=== PATIENT | male | born 1955 | race Caucasian/White ===

== ENCOUNTER 2017-04-09 15:18 | Inpatient (IN) | payer MEDICAID, OTHER ==
[~2017-04-09] VITALS: Ht 177.8 cm; Wt 58.0 kg
[2017-04-09] MEDS ORDERED: SODIUM CHLORIDE 0.9% 1,000 ML IVB ONE (15:56)
[2017-04-09 16:34] LABS: Basophils # (auto) 0.1 uL; Basophils % (auto) 0.2 % (0.0-2.0); Eosinophils # (auto) 0 uL; Eosinophils % (auto) 0.1 % (0.0-7.0); Lymphocytes # (auto) 0.7 uL; Lymphocytes % (auto) 3.3 % (10.0-50.0); Monocytes # (auto) 0.9 uL
[2017-04-09 16:35] LABS: Hematocrit 40.3 % (41.0-53.0); Hemoglobin 13.3 g/dL (13.5-17.5); Mean Corpuscular Hemoglobin 28.2 pg (28.0-32.0); Mean Corpuscular Hgb Conc. 33.1 g/dL (32.0-36.0); Monocytes % (auto) 4.3 % (0.0-12.0); Neutrophils # (auto) 19.7 uL; Neutrophils % (auto) 92.1 % (37.0-80.0); Nucleated Red Blood Cells % 0.1 %; Platelet Count (auto) 608 10^3/uL (140-450); Red Blood Cells 4.74 10^6/uL (4.5-5.90); Red Cell Distribution Width 16.2 % (11.8-14.3); White Blood Cell 21.3 10^3/uL (4.4-10.8)
[2017-04-09] MEDS ORDERED: VANCOMYCIN 1GM/250ML 250 ML IV ONE (17:00)
[2017-04-09 17:05] LABS: Alanine Aminotransferase 31 U/L (16-61); Albumin 3.6 g/dL (3.4-5.0); Alkaline Phosphatase 111 U/L (45-117); Anion Gap 8 (5-15); Aspartate Aminotransferase 29 U/L (15-37); BUN/Creatinine Ratio 27.7; Bilirubin, Total 0.5 mg/dL (0.2-1.0); Blood Urea Nitrogen 46 mg/dL (7-18); Calcium 10.6 mg/dL (8.5-10.1); Carbon Dioxide 22 mmol/L (21-32); Chloride 98 mmol/L (98-107); GFR African American 54 mL/min; GFR Non-African American 45 mL/min; Glucose 105 mg/dL (74-106); Sodium 128 mmol/L (136-145); Total Protein 11.8 g/dL (6.4-8.2)
[2017-04-09 17:11] LABS: Potassium 5.7 mmol/L (3.5-5.1)
[2017-04-09 19:17] LABS: Urine Bacteria MANY /hpf (None Seen); Urine Blood 1+ /uL (Negative); Urine Specific Gravity 1.018 (1.001-1.035); Urine WBC 201 /hpf (0 - 3)
[2017-04-09 19:45] LABS: Alcohol, Urine < 3.0 mg/dL (0-5); Amphetamine Screen, Urine NEGATIVE (NEGATIVE); Barbiturate Scree,Urine NEGATIVE (NEGATIVE); Benzodiazephine Screen, Urine POSITIVE (NEGATIVE); Cannabinoid Screen, Urine NEGATIVE (NEGATIVE); Cocaine Screen, Urine NEGATIVE (NEGATIVE); Opiate Scree,Urine POSITIVE (NEGATIVE); Phencyclidine Screen, Urine NEGATIVE (NEGATIVE)
[2017-04-09] MEDS: SODIUM CHLORIDE 0.9% 1,000 ML IV SCH (20:59)
[2017-04-09] MEDS ORDERED: ONDANSETRON HCL 4 MG/2 ML VIAL IV PRN (21:00)
[2017-04-09] MEDS ORDERED: cefTRIAXone 1GM/10ml IVPUSH 10 ML IV ONE (21:00)
[2017-04-09] MEDS ORDERED: VANCOMYCIN PER PHARMACY 0 MG IV SCH (21:00)
[2017-04-09] MEDS ORDERED: ACETAMINOPHEN 325 MG TAB PO PRN (21:00)
[2017-04-09 22:42] VITALS: BP 171/79
[2017-04-09 23:11] VITALS: BP 119/57
[2017-04-09 23:50] VITALS: BP 171/79
[2017-04-10] MEDS: FAMOTIDINE 20 MG TAB PO SCH ×3 (00:44→22:49)
[2017-04-10] MEDS: CARVEDILOL 3.125 MG TAB PO SCH ×3 (00:44→22:50)
[2017-04-10] MEDS: HYDROcodone-ACET 5/325MG TAB PO PRN ×2 (00:45→22:50)
[2017-04-10] MEDS ORDERED: DOCUSATE SOD 100 MG CAP PO ONE (04:15)
[2017-04-10 05:00] VITALS: BP 149/64
[2017-04-10 06:10] LABS: Eosinophils # (auto) 0 uL; Hematocrit 34.5 % (41.0-53.0); Lymphocytes # (auto) 0.7 uL; Monocytes # (auto) 1.2 uL; Red Cell Distribution Width 16.4 % (11.8-14.3)
[2017-04-10 06:17] LABS: Basophils # (auto) 0 uL; Basophils % (auto) 0.1 % (0.0-2.0); Eosinophils % (auto) 0.1 % (0.0-7.0); Hemoglobin 11.4 g/dL (13.5-17.5); Lymphocytes % (auto) 4.1 % (10.0-50.0); Mean Corpuscular Hemoglobin 28.2 pg (28.0-32.0); Mean Corpuscular Volume 85.6 fL (80.0-100.0); Monocytes % (auto) 6.8 % (0.0-12.0); Neutrophils # (auto) 15.9 uL; Neutrophils % (auto) 88.9 % (37.0-80.0); Platelet Count (auto) 497 10^3/uL (140-450); Red Blood Cells 4.03 10^6/uL (4.5-5.90); White Blood Cell 17.9 10^3/uL (4.4-10.8)
[2017-04-10 06:36] LABS: Albumin 2.7 g/dL (3.4-5.0); BUN/Creatinine Ratio 29.7; Bilirubin, Total 0.4 mg/dL (0.2-1.0); Calcium 9.4 mg/dL (8.5-10.1); Potassium 4.8 mmol/L (3.5-5.1); Total Protein 9.3 g/dL (6.4-8.2)
[2017-04-10 08:07] VITALS: BP 127/64
[2017-04-10] MEDS: DOCUSATE SOD 100 MG CAP PO SCH ×2 (09:59→22:00)
[2017-04-10] MEDS: ENOXAPARIN SOD 40 MG/0.4 ML SYRINGE SC SCH (09:59)
[2017-04-10] MEDS: AMIODARONE HCL 200 MG TAB PO SCH (09:59)
[2017-04-10 12:19] VITALS: BP 164/69
[2017-04-10] MEDS: PIPERACILLIN-TAZOB 3.375GM 50 ML IV SCH ×2 (12:48→18:07)
[2017-04-10] MEDS: SODIUM CHLORIDE 0.9% 1,000 ML IV SCH (15:56)
[2017-04-10] MEDS: VANCOMYCIN 1GM/250ML 250 ML IV SCH (16:09)
[2017-04-10 16:55] VITALS: BP 120/86
[2017-04-10 22:00] VITALS: BP 163/76
[2017-04-10] MEDS ORDERED: cefTRIAXone 1GM/10ml IVPUSH 10 ML IV SCH (22:00)
[2017-04-11 05:16] VITALS: BP 151/69
[2017-04-11] MEDS: SODIUM CHLORIDE 0.9% 1,000 ML IV SCH (06:39)
[2017-04-11] MEDS: PIPERACILLIN-TAZOB 3.375GM 50 ML IV SCH ×4 (06:41→18:09)
[2017-04-11] MEDS: HYDROcodone-ACET 5/325MG TAB PO PRN ×3 (06:45→18:46)
[2017-04-11 06:56] LABS: Basophils # (auto) 0 uL; Basophils % (auto) 0.1 % (0.0-2.0); Eosinophils # (auto) 0 uL; Eosinophils % (auto) 0.3 % (0.0-7.0); Hematocrit 30.3 % (41.0-53.0); Hemoglobin 10.3 g/dL (13.5-17.5); Lymphocytes # (auto) 0.5 uL; Mean Corpuscular Hemoglobin 28.2 pg (28.0-32.0); Mean Corpuscular Hgb Conc. 33.9 g/dL (32.0-36.0); Mean Corpuscular Volume 83.3 fL (80.0-100.0); Monocytes % (auto) 6.1 % (0.0-12.0); Neutrophils # (auto) 15.6 uL; Neutrophils % (auto) 90.5 % (37.0-80.0); Platelet Count (auto) 429 10^3/uL (140-450); Red Blood Cells 3.64 10^6/uL (4.5-5.90); Red Cell Distribution Width 16.1 % (11.8-14.3); White Blood Cell 17.3 10^3/uL (4.4-10.8)
[2017-04-11 07:17] LABS: Calcium 9.1 mg/dL (8.5-10.1)
[2017-04-11 07:22] LABS: BUN/Creatinine Ratio 22.4
[2017-04-11 08:00] VITALS: BP 171/63
[2017-04-11] MEDS: DOCUSATE SOD 100 MG CAP PO SCH ×2 (10:00→21:55)
[2017-04-11] MEDS: ENOXAPARIN SOD 40 MG/0.4 ML SYRINGE SC SCH (10:20)
[2017-04-11] MEDS: FAMOTIDINE 20 MG TAB PO SCH ×2 (10:20→21:56)
[2017-04-11] MEDS: AMIODARONE HCL 200 MG TAB PO SCH (10:20)
[2017-04-11] MEDS: CARVEDILOL 3.125 MG TAB PO SCH ×2 (10:21→22:41)
[2017-04-11] MEDS: BOOST PLUS 8 ounce PO SCH ×2 (12:00→18:09)
[2017-04-11 12:34] VITALS: BP 162/78
[2017-04-11] MEDS: amLODIPine BESYLATE 5 MG TAB PO SCH (13:51)
[2017-04-11] MEDS: VANCOMYCIN 1GM/250ML 250 ML IV SCH (17:10)
[2017-04-11 17:19] VITALS: BP 172/68
[2017-04-11] MEDS: cloNIDine HCL 0.1 MG TAB PO PRN (18:09)
[2017-04-11] MEDS: TEMAZEPAM 15 MG CAP PO PRN (21:56)
[2017-04-11 22:20] VITALS: BP 131/61
[2017-04-12] MEDS: PIPERACILLIN-TAZOB 3.375GM 50 ML IV SCH ×5 (02:11→23:32)
[2017-04-12 04:59] VITALS: BP 143/61
[2017-04-12] MEDS: SODIUM CHLORIDE 0.9% 1,000 ML IV SCH ×2 (05:36→15:39)
[2017-04-12] MEDS: HYDROcodone-ACET 5/325MG TAB PO PRN ×4 (05:36→21:54)
[2017-04-12] MEDS: BOOST PLUS 8 ounce PO SCH ×3 (08:00→18:18)
[2017-04-12 09:00] VITALS: BP 148/63
[2017-04-12] MEDS: FAMOTIDINE 20 MG TAB PO SCH ×2 (10:46→21:54)
[2017-04-12] MEDS: amLODIPine BESYLATE 5 MG TAB PO SCH (10:46)
[2017-04-12] MEDS: CARVEDILOL 3.125 MG TAB PO SCH ×2 (10:47→21:54)
[2017-04-12] MEDS: DOCUSATE SOD 100 MG CAP PO SCH ×2 (10:47→21:57)
[2017-04-12] MEDS: ENOXAPARIN SOD 40 MG/0.4 ML SYRINGE SC SCH (10:47)
[2017-04-12 13:00] VITALS: BP 157/64
[2017-04-12 17:00] VITALS: BP 154/83
[2017-04-12] MEDS: VANCOMYCIN 1GM/250ML 250 ML IV SCH (17:18)
[2017-04-12 21:44] VITALS: BP 146/70
[2017-04-12] MEDS: TEMAZEPAM 15 MG CAP PO PRN (23:29)
[2017-04-12] MEDS: MORPHINE SULFATE 4 MG/ML SYR/VIAL IV PRN (23:29)
[2017-04-13 05:00] VITALS: BP 166/77
[2017-04-13] MEDS: cloNIDine HCL 0.1 MG TAB PO PRN (05:09)
[2017-04-13] MEDS: MORPHINE SULFATE 4 MG/ML SYR/VIAL IV PRN ×3 (05:09→21:46)
[2017-04-13] MEDS: PIPERACILLIN-TAZOB 3.375GM 50 ML IV SCH ×3 (05:09→18:26)
[2017-04-13 06:42] LABS: INR 1.04 (0.9-1.15); Partial Thromboplastin Time 28.9 sec (22.64-33.71); Prothrombin Time 11.3 sec (9.37-12.3)
[2017-04-13] MEDS: BOOST PLUS 8 ounce PO SCH ×3 (08:00→18:25)
[2017-04-13] MEDS: SODIUM CHLORIDE 0.9% 1,000 ML IV SCH (08:19)
[2017-04-13 08:30] VITALS: BP 149/68
[2017-04-13] MEDS: FAMOTIDINE 20 MG TAB PO SCH ×2 (09:44→21:45)
[2017-04-13] MEDS: HYDROcodone-ACET 5/325MG TAB PO PRN ×2 (09:44→20:14)
[2017-04-13] MEDS: CARVEDILOL 3.125 MG TAB PO SCH ×5 (09:45→23:45)
[2017-04-13] MEDS: amLODIPine BESYLATE 5 MG TAB PO SCH (09:46)
[2017-04-13] MEDS: DOCUSATE SOD 100 MG CAP PO SCH ×2 (09:46→22:00)
[2017-04-13] MEDS: ENOXAPARIN SOD 40 MG/0.4 ML SYRINGE SC SCH (09:47)
[2017-04-13] MEDS ORDERED: ceFAZolin 1GM/50ML 50 ML IV ONE (11:06)
[2017-04-13] MEDS ORDERED: MIDAZOLAM HCL 1MG/1ML-2 ML VIAL ONE (11:22)
[2017-04-13] MEDS ORDERED: PROPOFOL 10 MG/ML 20 ML IV ONE (11:22)
[2017-04-13] MEDS ORDERED: LIDOCAINE HCL 2 %PF INJ 10ML AMP IJ ONE (11:22)
[2017-04-13] MEDS ORDERED: LIDOCAINE HCL 2% TOP JELLY 5ML TOP ONE (11:25)
[2017-04-13] MEDS ORDERED: fentaNYL CITRATE 100 MCG/2 ML VL ONE (11:31)
[2017-04-13] MEDS ORDERED: hydrALAZINE HCL 20 MG/ML VL IV PRN (11:45)
[2017-04-13] MEDS ORDERED: NALOXONE HCL 0.4 MG/ML VIAL IV PRN (11:45)
[2017-04-13] MEDS ORDERED: MORPHINE SULFATE 4 MG/ML SYR/VIAL IV PRN (11:45)
[2017-04-13] MEDS ORDERED: ONDANSETRON HCL 4 MG/2 ML VIAL IV ONE (11:45)
[2017-04-13] MEDS ORDERED: KETOROLAC TROMETH 30 MG/ML 1ML VIAL ONE (13:23)
[2017-04-13] MEDS ORDERED: KETOROLAC TROMETH 30 MG/ML 1ML VIAL IV ONE (13:30)
[2017-04-13 16:40] VITALS: BP 145/50
[2017-04-13] MEDS: VANCOMYCIN 1GM/250ML 250 ML IV SCH (17:54)
[2017-04-13 20:00] VITALS: BP 151/61
[2017-04-13] MEDS: TEMAZEPAM 15 MG CAP PO PRN (21:45)
[2017-04-13 22:33] VITALS: BP 151/66
[2017-04-14] MEDS: MORPHINE SULFATE 4 MG/ML SYR/VIAL IV PRN ×5 (00:03→20:55)
[2017-04-14] MEDS: PIPERACILLIN-TAZOB 3.375GM 50 ML IV SCH ×5 (00:22→23:35)
[2017-04-14] MEDS: SODIUM CHLORIDE 0.9% 1,000 ML IV SCH ×2 (00:59→17:42)
[2017-04-14 05:00] VITALS: BP 163/84
[2017-04-14] MEDS: cloNIDine HCL 0.1 MG TAB PO PRN (05:47)
[2017-04-14 07:06] LABS: Basophils # (auto) 0 uL; Basophils % (auto) 0.4 % (0.0-2.0); Eosinophils # (auto) 0.1 uL; Eosinophils % (auto) 1.3 % (0.0-7.0); Hematocrit 26.7 % (41.0-53.0); Hemoglobin 8.9 g/dL (13.5-17.5); Lymphocytes # (auto) 0.7 uL; Lymphocytes % (auto) 8.2 % (10.0-50.0); Mean Corpuscular Hemoglobin 28.1 pg (28.0-32.0); Mean Corpuscular Hgb Conc. 33.2 g/dL (32.0-36.0); Mean Corpuscular Volume 84.4 fL (80.0-100.0); Monocytes # (auto) 0.7 uL; Monocytes % (auto) 7.5 % (0.0-12.0); Neutrophils # (auto) 7.4 uL; Neutrophils % (auto) 82.6 % (37.0-80.0); Nucleated Red Blood Cells % 0.1 %; Platelet Count (auto) 426 10^3/uL (140-450); Red Blood Cells 3.16 10^6/uL (4.5-5.90); Red Cell Distribution Width 16.6 % (11.8-14.3); White Blood Cell 8.9 10^3/uL (4.4-10.8)
[2017-04-14 07:16] LABS: BUN/Creatinine Ratio 16.1; Calcium 8.8 mg/dL (8.5-10.1); Potassium 4.5 mmol/L (3.5-5.1)
[2017-04-14] MEDS: BOOST PLUS 8 ounce PO SCH ×4 (08:00→17:42)
[2017-04-14] MEDS: HYDROcodone-ACET 5/325MG TAB PO PRN ×4 (08:45→23:22)
[2017-04-14 09:00] VITALS: BP 131/69
[2017-04-14] MEDS: DOCUSATE SOD 100 MG CAP PO SCH ×2 (09:56→22:00)
[2017-04-14] MEDS: ENOXAPARIN SOD 40 MG/0.4 ML SYRINGE SC SCH (10:28)
[2017-04-14] MEDS: ASCORBIC ACID 500 MG TAB PO SCH ×2 (10:29→23:22)
[2017-04-14] MEDS: FAMOTIDINE 20 MG TAB PO SCH ×2 (10:29→23:24)
[2017-04-14] MEDS: MULTIPLE VITAMINS W/ MINERALS TAB PO SCH ×2 (10:29→23:22)
[2017-04-14] MEDS: CARVEDILOL 3.125 MG TAB PO SCH ×2 (10:30→23:24)
[2017-04-14] MEDS: amLODIPine BESYLATE 5 MG TAB PO SCH (10:31)
[2017-04-14 13:00] VITALS: BP 151/72
[2017-04-14 17:00] VITALS: BP 186/79
[2017-04-14] MEDS ORDERED: VANCOMYCIN 1GM/250ML 250 ML IV SCH (17:00)
[2017-04-14 20:00] VITALS: BP 131/69
[2017-04-14 22:00] VITALS: BP 155/71
[2017-04-14] MEDS: ceFAZolin 1GM 2 GM in D5W 5% 100 ML IV SCH (22:00)
[2017-04-14] MEDS ORDERED: ceFAZolin 1GM/50ML 50 ML IV ONE (23:43)
[2017-04-15] MEDS: CARVEDILOL 3.125 MG TAB PO SCH ×3 (00:24→21:33)
[2017-04-15] MEDS: HYDROcodone-ACET 5/325MG TAB PO PRN ×3 (04:16→16:16)
[2017-04-15] MEDS: MORPHINE SULFATE 4 MG/ML SYR/VIAL IV PRN ×5 (04:26→22:15)
[2017-04-15 05:00] VITALS: BP 195/68
[2017-04-15] MEDS ORDERED: ceFAZolin 1GM/50ML 50 ML IV ONE ×2 (05:26→21:27)
[2017-04-15] MEDS: PIPERACILLIN-TAZOB 3.375GM 50 ML IV SCH ×4 (05:29→23:37)
[2017-04-15] MEDS: ceFAZolin 1GM 2 GM in D5W 5% 100 ML IV SCH ×4 (06:00→21:34)
[2017-04-15 07:33] LABS: Albumin 2.4 g/dL (3.4-5.0); BUN/Creatinine Ratio 12.4; Bilirubin, Total 0.2 mg/dL (0.2-1.0); Calcium 8.9 mg/dL (8.5-10.1); Potassium 3.8 mmol/L (3.5-5.1); Total Protein 8.1 g/dL (6.4-8.2)
[2017-04-15] MEDS: BOOST PLUS 8 ounce PO SCH ×3 (08:26→18:01)
[2017-04-15 09:00] VITALS: BP 149/56
[2017-04-15] MEDS: DOCUSATE SOD 100 MG CAP PO SCH ×2 (09:44→21:32)
[2017-04-15] MEDS: SODIUM CHLORIDE 0.9% 1,000 ML IV SCH (09:45)
[2017-04-15] MEDS: ASCORBIC ACID 500 MG TAB PO SCH ×2 (09:47→21:32)
[2017-04-15] MEDS: FAMOTIDINE 20 MG TAB PO SCH ×2 (09:47→21:32)
[2017-04-15] MEDS: ENOXAPARIN SOD 40 MG/0.4 ML SYRINGE SC SCH (09:47)
[2017-04-15] MEDS: amLODIPine BESYLATE 5 MG TAB PO SCH (09:48)
[2017-04-15] MEDS: MULTIPLE VITAMINS W/ MINERALS TAB PO SCH ×2 (09:48→21:32)
[2017-04-15 13:00] VITALS: BP 151/72
[2017-04-15] MEDS ORDERED: LIDOCAINE 1% HCL (LOCAL ANESTH.) INJ 20ML MDV ID ONE (16:30)
[2017-04-15 17:00] VITALS: BP 157/72
[2017-04-15] MEDS: cloNIDine HCL 0.1 MG TAB PO PRN (21:33)
[2017-04-15] MEDS: SODIUM CHLOR 0.9% PF (SALINE LOCK) 10ML VIAL IV SCH (21:34)
[2017-04-15 22:31] VITALS: BP 186/87
[2017-04-16] MEDS: HYDROcodone-ACET 5/325MG TAB PO PRN ×2 (00:40→16:11)
[2017-04-16] MEDS: SODIUM CHLORIDE 0.9% 1,000 ML IV SCH ×2 (03:05→20:22)
[2017-04-16] MEDS: MORPHINE SULFATE 4 MG/ML SYR/VIAL IV PRN ×4 (03:37→20:15)
[2017-04-16 05:16] VITALS: BP 179/74
[2017-04-16] MEDS: PIPERACILLIN-TAZOB 3.375GM 50 ML IV SCH ×3 (05:37→17:30)
[2017-04-16] MEDS: ceFAZolin 1GM 2 GM in D5W 5% 100 ML IV SCH ×3 (06:05→22:31)
[2017-04-16] MEDS: cloNIDine HCL 0.1 MG TAB PO PRN (06:05)
[2017-04-16] MEDS: BOOST PLUS 8 ounce PO SCH ×3 (08:26→17:30)
[2017-04-16 09:00] VITALS: BP 142/95
[2017-04-16] MEDS: DOCUSATE SOD 100 MG CAP PO SCH ×2 (10:00→22:00)
[2017-04-16] MEDS: ENOXAPARIN SOD 40 MG/0.4 ML SYRINGE SC SCH (10:00)
[2017-04-16] MEDS: SODIUM CHLOR 0.9% PF (SALINE LOCK) 10ML VIAL IV SCH ×2 (10:04→22:31)
[2017-04-16] MEDS: FAMOTIDINE 20 MG TAB PO SCH ×2 (10:05→22:32)
[2017-04-16] MEDS: ASCORBIC ACID 500 MG TAB PO SCH ×2 (10:05→22:32)
[2017-04-16] MEDS: MULTIPLE VITAMINS W/ MINERALS TAB PO SCH ×2 (10:05→22:31)
[2017-04-16] MEDS: amLODIPine BESYLATE 5 MG TAB PO SCH (10:06)
[2017-04-16] MEDS: CARVEDILOL 3.125 MG TAB PO SCH ×2 (10:07→22:00)
[2017-04-16 13:00] VITALS: BP 147/63
[2017-04-16 16:42] VITALS: BP 150/63
[2017-04-16 22:23] VITALS: BP 135/61
[2017-04-16] MEDS: TEMAZEPAM 15 MG CAP PO PRN (22:36)
[2017-04-17] VITALS (7 sets, daily range): BP systolic 141–169; BP diastolic 48–64
[2017-04-17] MEDS: PIPERACILLIN-TAZOB 3.375GM 50 ML IV SCH ×5 (00:50→23:55)
[2017-04-17] MEDS: MORPHINE SULFATE 4 MG/ML SYR/VIAL IV PRN ×5 (00:50→23:11)
[2017-04-17] MEDS: ceFAZolin 1GM 2 GM in D5W 5% 100 ML IV SCH ×3 (06:57→22:03)
[2017-04-17] MEDS: FAMOTIDINE 20 MG TAB PO SCH ×2 (09:14→22:03)
[2017-04-17] MEDS: ASCORBIC ACID 500 MG TAB PO SCH ×2 (09:15→22:03)
[2017-04-17] MEDS: HYDROcodone-ACET 5/325MG TAB PO PRN ×3 (09:15→20:35)
[2017-04-17] MEDS: MULTIPLE VITAMINS W/ MINERALS TAB PO SCH ×2 (09:15→22:03)
[2017-04-17] MEDS: DOCUSATE SOD 100 MG CAP PO SCH ×2 (09:16→22:03)
[2017-04-17] MEDS: CARVEDILOL 3.125 MG TAB PO SCH ×2 (09:16→22:03)
[2017-04-17] MEDS: amLODIPine BESYLATE 5 MG TAB PO SCH (09:16)
[2017-04-17] MEDS: BOOST PLUS 8 ounce PO SCH ×3 (09:17→17:02)
[2017-04-17] MEDS: ENOXAPARIN SOD 40 MG/0.4 ML SYRINGE SC SCH (09:17)
[2017-04-17] MEDS: SODIUM CHLOR 0.9% PF (SALINE LOCK) 10ML VIAL IV SCH ×2 (09:17→22:03)
[2017-04-17] MEDS: SODIUM CHLORIDE 0.9% 1,000 ML IV SCH (11:54)
[2017-04-17] MEDS: cloNIDine HCL 0.1 MG TAB PO PRN (17:03)
[2017-04-18] VITALS (7 sets, daily range): BP systolic 122–173; BP diastolic 53–70
[2017-04-18] MEDS: MORPHINE SULFATE 4 MG/ML SYR/VIAL IV PRN ×2 (04:12→21:33)
[2017-04-18] MEDS: PIPERACILLIN-TAZOB 3.375GM 50 ML IV SCH ×4 (05:13→23:59)
[2017-04-18] MEDS: SODIUM CHLORIDE 0.9% 1,000 ML IV SCH ×2 (05:14→21:34)
[2017-04-18] MEDS: HYDROcodone-ACET 5/325MG TAB PO PRN ×3 (06:44→18:56)
[2017-04-18] MEDS: ceFAZolin 1GM 2 GM in D5W 5% 100 ML IV SCH ×3 (07:00→21:32)
[2017-04-18 07:39] LABS: Basophils # (auto) 0.1 uL; Basophils % (auto) 0.6 % (0.0-2.0); Eosinophils # (auto) 0.2 uL; Eosinophils % (auto) 1.6 % (0.0-7.0); Hemoglobin 9.3 g/dL (13.5-17.5); Lymphocytes # (auto) 1.2 uL; Lymphocytes % (auto) 9.3 % (10.0-50.0); Mean Corpuscular Hemoglobin 27.5 pg (28.0-32.0); Mean Corpuscular Hgb Conc. 32.3 g/dL (32.0-36.0); Mean Corpuscular Volume 85.1 fL (80.0-100.0); Monocytes # (auto) 0.7 uL; Monocytes % (auto) 5.3 % (0.0-12.0); Neutrophils # (auto) 10.5 uL; Neutrophils % (auto) 83.2 % (37.0-80.0); Platelet Count (auto) 401 10^3/uL (140-450); Red Cell Distribution Width 16.6 % (11.8-14.3); White Blood Cell 12.6 10^3/uL (4.4-10.8)
[2017-04-18] MEDS: DOCUSATE SOD 100 MG CAP PO SCH ×2 (10:00→21:35)
[2017-04-18] MEDS: FAMOTIDINE 20 MG TAB PO SCH ×2 (10:02→21:32)
[2017-04-18] MEDS: ASCORBIC ACID 500 MG TAB PO SCH ×2 (10:02→21:31)
[2017-04-18] MEDS: ENOXAPARIN SOD 40 MG/0.4 ML SYRINGE SC SCH (10:02)
[2017-04-18] MEDS: MULTIPLE VITAMINS W/ MINERALS TAB PO SCH ×2 (10:02→21:32)
[2017-04-18] MEDS: amLODIPine BESYLATE 5 MG TAB PO SCH (10:03)
[2017-04-18] MEDS: BOOST PLUS 8 ounce PO SCH ×3 (10:04→18:57)
[2017-04-18] MEDS: CARVEDILOL 3.125 MG TAB PO SCH ×2 (10:04→21:31)
[2017-04-18] MEDS: SODIUM CHLOR 0.9% PF (SALINE LOCK) 10ML VIAL IV SCH ×2 (10:04→21:32)
[2017-04-18] MEDS: cloNIDine HCL 0.1 MG TAB PO PRN (12:22)
[2017-04-19] MEDS: TEMAZEPAM 15 MG CAP PO PRN ×2 (02:13→21:23)
[2017-04-19 05:00] VITALS: BP 144/76
[2017-04-19] MEDS: ceFAZolin 1GM 2 GM in D5W 5% 100 ML IV SCH ×3 (05:00→21:37)
[2017-04-19] MEDS: PIPERACILLIN-TAZOB 3.375GM 50 ML IV SCH ×4 (06:00→23:32)
[2017-04-19] MEDS: SODIUM CHLORIDE 0.9% 1,000 ML IV SCH (06:59)
[2017-04-19] MEDS: BOOST PLUS 8 ounce PO SCH ×3 (07:44→18:03)
[2017-04-19 09:00] VITALS: BP 181/76
[2017-04-19] MEDS: DOCUSATE SOD 100 MG CAP PO SCH ×2 (10:00→21:24)
[2017-04-19] MEDS: ASCORBIC ACID 500 MG TAB PO SCH ×2 (10:28→21:26)
[2017-04-19] MEDS: FAMOTIDINE 20 MG TAB PO SCH ×2 (10:28→21:26)
[2017-04-19] MEDS: HYDROcodone-ACET 5/325MG TAB PO PRN ×2 (10:29→17:23)
[2017-04-19] MEDS: amLODIPine BESYLATE 5 MG TAB PO SCH (10:30)
[2017-04-19] MEDS: MULTIPLE VITAMINS W/ MINERALS TAB PO SCH ×2 (10:30→21:25)
[2017-04-19] MEDS: CARVEDILOL 3.125 MG TAB PO SCH ×2 (10:30→21:28)
[2017-04-19] MEDS: SODIUM CHLOR 0.9% PF (SALINE LOCK) 10ML VIAL IV SCH ×2 (10:31→22:00)
[2017-04-19] MEDS: ENOXAPARIN SOD 40 MG/0.4 ML SYRINGE SC SCH (10:31)
[2017-04-19 12:37] VITALS: BP 140/75
[2017-04-19 17:01] VITALS: BP 165/75
[2017-04-19] MEDS: MORPHINE SULFATE 4 MG/ML SYR/VIAL IV PRN (21:37)
[2017-04-19 22:00] VITALS: BP 155/80
[2017-04-20] MEDS: MORPHINE SULFATE 4 MG/ML SYR/VIAL IV PRN ×3 (01:57→20:50)
[2017-04-20] MEDS: cloNIDine HCL 0.1 MG TAB PO PRN (04:53)
[2017-04-20 05:00] VITALS: BP 191/84
[2017-04-20] MEDS: ceFAZolin 1GM 2 GM in D5W 5% 100 ML IV SCH ×3 (05:03→21:21)
[2017-04-20 06:08] VITALS: BP 158/79
[2017-04-20] MEDS: PIPERACILLIN-TAZOB 3.375GM 50 ML IV SCH ×4 (06:53→23:46)
[2017-04-20] MEDS: SODIUM CHLORIDE 0.9% 1,000 ML IV SCH ×2 (07:03→23:45)
[2017-04-20] MEDS: BOOST PLUS 8 ounce PO SCH ×3 (07:38→17:41)
[2017-04-20] MEDS: HYDROcodone-ACET 5/325MG TAB PO PRN ×3 (07:45→18:58)
[2017-04-20 08:30] VITALS: BP 151/65
[2017-04-20] MEDS: DOCUSATE SOD 100 MG CAP PO SCH ×3 (10:00→21:39)
[2017-04-20] MEDS: SODIUM CHLOR 0.9% PF (SALINE LOCK) 10ML VIAL IV SCH ×2 (10:53→21:21)
[2017-04-20] MEDS: FAMOTIDINE 20 MG TAB PO SCH ×2 (10:54→21:19)
[2017-04-20] MEDS: CARVEDILOL 3.125 MG TAB PO SCH ×2 (10:54→21:19)
[2017-04-20] MEDS: MULTIPLE VITAMINS W/ MINERALS TAB PO SCH ×2 (10:54→21:20)
[2017-04-20] MEDS: amLODIPine BESYLATE 5 MG TAB PO SCH (10:54)
[2017-04-20] MEDS: ENOXAPARIN SOD 40 MG/0.4 ML SYRINGE SC SCH (10:55)
[2017-04-20] MEDS: ASCORBIC ACID 500 MG TAB PO SCH ×2 (10:55→21:19)
[2017-04-20 12:22] VITALS: BP 149/92
[2017-04-20 16:19] VITALS: BP 128/70
[2017-04-20 22:00] VITALS: BP 175/72
[2017-04-21] MEDS: MORPHINE SULFATE 4 MG/ML SYR/VIAL IV PRN (04:23)
[2017-04-21 05:00] VITALS: BP 153/80
[2017-04-21] MEDS: ceFAZolin 1GM 2 GM in D5W 5% 100 ML IV SCH ×2 (05:10→15:39)
[2017-04-21] MEDS: PIPERACILLIN-TAZOB 3.375GM 50 ML IV SCH ×2 (06:09→12:22)
[2017-04-21 06:16] LABS: Basophils # (auto) 0.1 uL; Basophils % (auto) 0.7 % (0.0-2.0); Eosinophils # (auto) 0.2 uL; Eosinophils % (auto) 1.6 % (0.0-7.0); Hematocrit 27.8 % (41.0-53.0); Lymphocytes # (auto) 1.1 uL; Lymphocytes % (auto) 9.3 % (10.0-50.0); Mean Corpuscular Hemoglobin 27.7 pg (28.0-32.0); Mean Corpuscular Hgb Conc. 32.3 g/dL (32.0-36.0); Mean Corpuscular Volume 85.8 fL (80.0-100.0); Monocytes # (auto) 0.6 uL; Monocytes % (auto) 5.5 % (0.0-12.0); Neutrophils # (auto) 9.8 uL; Neutrophils % (auto) 82.9 % (37.0-80.0); Platelet Count (auto) 408 10^3/uL (140-450); Red Blood Cells 3.25 10^6/uL (4.5-5.90); Red Cell Distribution Width 17.3 % (11.8-14.3); White Blood Cell 11.9 10^3/uL (4.4-10.8)
[2017-04-21 09:00] VITALS: BP 134/56
[2017-04-21] MEDS: DOCUSATE SOD 100 MG CAP PO SCH (10:00)
[2017-04-21] MEDS: ASCORBIC ACID 500 MG TAB PO SCH (10:39)
[2017-04-21] MEDS: FAMOTIDINE 20 MG TAB PO SCH (10:39)
[2017-04-21] MEDS: HYDROcodone-ACET 5/325MG TAB PO PRN (10:39)
[2017-04-21] MEDS: MULTIPLE VITAMINS W/ MINERALS TAB PO SCH (10:39)
[2017-04-21] MEDS: amLODIPine BESYLATE 5 MG TAB PO SCH (10:40)
[2017-04-21] MEDS: CARVEDILOL 3.125 MG TAB PO SCH (10:40)
[2017-04-21] MEDS: SODIUM CHLOR 0.9% PF (SALINE LOCK) 10ML VIAL IV SCH (10:41)
[2017-04-21] MEDS: BOOST PLUS 8 ounce PO SCH ×2 (10:41→12:22)
[2017-04-21] MEDS: ENOXAPARIN SOD 40 MG/0.4 ML SYRINGE SC SCH (10:43)
[2017-04-21 12:31] VITALS: BP 139/92
[2017-04-21 12:50] VITALS: BP 134/68
== END 2017-04-21 15:30 | DRG 710 ==
LOC: ER 15:26 → OVERFLOW 15:27 → WEST WING 22:40
PROVIDERS: ADMIT Nurse Practitioner; ATTEND Internal Medicine Pulmonary Disease
PROC: 0Y6J0Z3 Detachment at Left Lower Leg, Low, Open Approach (ICD-10-PCS; principal; 2017-04-13 11:19)
PROC: 02HV33Z Insertion of Infusion Device into Superior Vena Cava, Percutaneous Approach (ICD-10-PCS; 2017-04-15)
DX: A41.9 Sepsis, unspecified organism (principal); N17.0 Acute kidney failure with tubular necrosis; I96 Gangrene, not elsewhere classified; L89.524 Pressure ulcer of left ankle, stage 4; E44.0 Moderate protein-calorie malnutrition; R64 Cachexia; N18.3 Chronic kidney disease, stage 3 (moderate); I12.9 Hypertensive chronic kidney disease with stage 1 through stage 4 chronic kidney disease, or unspecified chronic kidney disease; D50.0 Iron deficiency anemia secondary to blood loss (chronic); F17.210 Nicotine dependence, cigarettes, uncomplicated; F14.90 Cocaine use, unspecified, uncomplicated; N39.0 Urinary tract infection, site not specified; Z71.6 Tobacco abuse counseling; R62.7 Adult failure to thrive; E83.52 Hypercalcemia; B96.4 Proteus (mirabilis) (morganii) as the cause of diseases classified elsewhere; B95.61 Methicillin susceptible Staphylococcus aureus infection as the cause of diseases classified elsewhere; G47.00 Insomnia, unspecified; R70.0 Elevated erythrocyte sedimentation rate; E87.1 Hypo-osmolality and hyponatremia; E87.5 Hyperkalemia; F32.9 Major depressive disorder, single episode, unspecified; F41.9 Anxiety disorder, unspecified; J44.9 Chronic obstructive pulmonary disease, unspecified; M86.8X6 Other osteomyelitis, lower leg; Z68.1 Body mass index [BMI] 19.9 or less, adult; B96.1 Klebsiella pneumoniae [K. pneumoniae] as the cause of diseases classified elsewhere
CPT/HCPCS: 36415; 36569; 51702; 70450; 71045; 73610; 73700; 78315; 80048; 80053; 80202; 80307; 81001; 83605; 83735; 84132; 84443; 84484; 85025; 85610; 85652; 85730; 86141; 87040; 87077; 87081; 87186; 87205; 93005; 93926; 94761; 96365; 96366; 96375; 97163; J0690; J1885; J2250; J2543; J2704; J7060

== ENCOUNTER 2017-08-02 12:57 | Inpatient (IN) | payer MEDICAID ==
[~2017-08-02] VITALS: Ht 177.8 cm; Wt 55.7 kg
[2017-08-02 15:20] LABS: Basophils # (auto) 0 uL; Basophils % (auto) 0.4 % (0.0-2.0); Eosinophils # (auto) 0.2 uL; Eosinophils % (auto) 1.9 % (0.0-7.0); Hematocrit 40.1 % (41.0-53.0); Hemoglobin 13.6 g/dL (13.5-17.5); Lymphocytes # (auto) 0.9 uL; Lymphocytes % (auto) 9.7 % (10.0-50.0); Mean Corpuscular Hemoglobin 29.5 pg (28.0-32.0); Mean Corpuscular Volume 86.9 fL (80.0-100.0); Monocytes # (auto) 0.7 uL; Monocytes % (auto) 7.3 % (0.0-12.0); Neutrophils # (auto) 7.4 uL; Neutrophils % (auto) 80.7 % (37.0-80.0); Nucleated Red Blood Cells % 0.1 %; Platelet Count (auto) 274 10^3/uL (140-450); Red Blood Cells 4.61 10^6/uL (4.5-5.90); Red Cell Distribution Width 14.6 % (11.8-14.3); White Blood Cell 9.2 10^3/uL (4.4-10.8)
[2017-08-02] MEDS ORDERED: SODIUM CHLORIDE 0.9% 1,000 ML IV ONE (15:38)
[2017-08-02 15:39] LABS: Albumin 3.5 g/dL (3.4-5.0); BUN/Creatinine Ratio 16.3; Bilirubin, Total 0.3 mg/dL (0.2-1.0); Calcium 9.2 mg/dL (8.5-10.1); Potassium 3.7 mmol/L (3.5-5.1); Total Protein 8.6 g/dL (6.4-8.2)
[2017-08-02] MEDS ORDERED: CLINDAMYCIN 600MG IV 50 ML IV ONE (15:45)
[2017-08-02 16:28] LABS: Magnesium 2.4 mg/dL (1.6-2.6)
[2017-08-02 16:36] LABS: INR 0.99 (0.9-1.15); Partial Thromboplastin Time 29.9 sec (23.78-33.04); Prothrombin Time 10.6 sec (9.27-12.13)
[2017-08-02] MEDS ORDERED: VANCOMYCIN PER PHARMACY 0 MG IV SCH (17:00)
[2017-08-02] MEDS ORDERED: LISINOPRIL 10 MG TAB PO ONE (17:00)
[2017-08-02] MEDS ORDERED: ONDANSETRON HCL 4 MG/2 ML VIAL IV PRN (17:00)
[2017-08-02] MEDS ORDERED: MORPHINE SULFATE 8mg/ml INJ SDV IV PRN (17:00)
[2017-08-02] MEDS ORDERED: PIPERACILLIN-TAZOB 3.375GM 100 ML IV ONE (18:00)
[2017-08-02] MEDS: IPRATROPIUM BROM 0.5 MG/2.5ML INH SOL NEB SCH (18:47)
[2017-08-02] MEDS: ALBUTEROL SULF 2.5 MG/0.5ML(0.5%) NEB SOLN NEB SCH (18:47)
[2017-08-02] MEDS ORDERED: VANCOMYCIN 1GM/250ML 250 ML IV SCH (19:00)
[2017-08-02 21:00] VITALS: BP 157/88
[2017-08-02 22:00] VITALS: BP 157/88
[2017-08-02] MEDS: HYDROcodone-ACET 5/325MG TAB PO PRN (22:13)
[2017-08-02] MEDS: VANCOMYCIN 1GM/250ML 250 ML IV SCH (22:14)
[2017-08-02 23:02] VITALS: BP 157/88
[2017-08-03] MEDS: PIPERACILLIN-TAZOB 3.375GM 100 ML IV SCH ×4 (00:31→18:06)
[2017-08-03 05:47] VITALS: BP 198/80
[2017-08-03] MEDS: IPRATROPIUM BROM 0.5 MG/2.5ML INH SOL NEB SCH ×3 (06:15→19:32)
[2017-08-03] MEDS: ALBUTEROL SULF 2.5 MG/0.5ML(0.5%) NEB SOLN NEB SCH ×3 (06:15→19:32)
[2017-08-03 07:13] LABS: INR 1.04 (0.9-1.15); Partial Thromboplastin Time 29.2 sec (23.78-33.04); Prothrombin Time 11.1 sec (9.27-12.13)
[2017-08-03 07:19] LABS: Basophils # (auto) 0.1 uL; Basophils % (auto) 0.8 % (0.0-2.0); Eosinophils # (auto) 0.2 uL; Eosinophils % (auto) 2.6 % (0.0-7.0); Hematocrit 41.3 % (41.0-53.0); Hemoglobin 13.8 g/dL (13.5-17.5); Lymphocytes # (auto) 0.9 uL; Lymphocytes % (auto) 9.9 % (10.0-50.0); Mean Corpuscular Hemoglobin 29.2 pg (28.0-32.0); Mean Corpuscular Hgb Conc. 33.4 g/dL (32.0-36.0); Mean Corpuscular Volume 87.5 fL (80.0-100.0); Monocytes # (auto) 0.6 uL; Monocytes % (auto) 6.6 % (0.0-12.0); Neutrophils # (auto) 7.7 uL; Neutrophils % (auto) 80.1 % (37.0-80.0); Nucleated Red Blood Cells % 0.1 %; Platelet Count (auto) 271 10^3/uL (140-450); Red Blood Cells 4.72 10^6/uL (4.5-5.90); Red Cell Distribution Width 14.6 % (11.8-14.3); White Blood Cell 9.6 10^3/uL (4.4-10.8)
[2017-08-03 07:39] LABS: BUN/Creatinine Ratio 18.6; Calcium 8.1 mg/dL (8.5-10.1); Potassium 3.7 mmol/L (3.5-5.1)
[2017-08-03 08:00] VITALS: BP 172/80
[2017-08-03 08:50] VITALS: BP 173/80
[2017-08-03] MEDS: HYDROcodone-ACET 5/325MG TAB PO PRN ×3 (10:35→21:22)
[2017-08-03] MEDS: LISINOPRIL 10 MG TAB PO SCH (10:35)
[2017-08-03 12:57] VITALS: BP 144/75
[2017-08-03 17:00] VITALS: BP 132/82
[2017-08-03] MEDS ORDERED: IOHEXOL 300 MG/ML 100ML BOTTLE IJ ONE (17:08)
[2017-08-03] MEDS: VANCOMYCIN 1GM/250ML 250 ML IV SCH (20:59)
[2017-08-03 21:44] LABS: Urine Bacteria NONE SEEN /hpf (None Seen); Urine Blood Negative /uL (Negative); Urine Specific Gravity 1.038 (1.001-1.035); Urine WBC 2 /hpf (0 - 3)
[2017-08-03 22:00] VITALS: BP 155/76
[2017-08-03 22:03] LABS: Alcohol, Urine < 3.0 mg/dL (0-5); Amphetamine Screen, Urine POSITIVE (NEGATIVE); Barbiturate Scree,Urine NEGATIVE (NEGATIVE); Benzodiazephine Screen, Urine NEGATIVE (NEGATIVE); Cannabinoid Screen, Urine NEGATIVE (NEGATIVE); Cocaine Screen, Urine NEGATIVE (NEGATIVE); Opiate Scree,Urine NEGATIVE (NEGATIVE); Phencyclidine Screen, Urine NEGATIVE (NEGATIVE)
[2017-08-04] VITALS (7 sets, daily range): BP systolic 138–166; BP diastolic 63–89
[2017-08-04] MEDS: PIPERACILLIN-TAZOB 3.375GM 100 ML IV SCH ×4 (00:27→17:30)
[2017-08-04 06:45] LABS: BUN/Creatinine Ratio 17.5; Calcium 9.4 mg/dL (8.5-10.1); Potassium 4.1 mmol/L (3.5-5.1)
[2017-08-04] MEDS: ALBUTEROL SULF 2.5 MG/0.5ML(0.5%) NEB SOLN NEB SCH ×4 (06:47→20:01)
[2017-08-04] MEDS: IPRATROPIUM BROM 0.5 MG/2.5ML INH SOL NEB SCH ×4 (06:47→20:01)
[2017-08-04 06:48] LABS: Basophils # (auto) 0.1 uL; Basophils % (auto) 0.6 % (0.0-2.0); Eosinophils # (auto) 0.2 uL; Eosinophils % (auto) 2.7 % (0.0-7.0); Hematocrit 39.8 % (41.0-53.0); Hemoglobin 13.5 g/dL (13.5-17.5); Lymphocytes # (auto) 0.9 uL; Lymphocytes % (auto) 10.9 % (10.0-50.0); Mean Corpuscular Hemoglobin 29.6 pg (28.0-32.0); Mean Corpuscular Hgb Conc. 33.9 g/dL (32.0-36.0); Mean Corpuscular Volume 87.2 fL (80.0-100.0); Monocytes # (auto) 0.6 uL; Monocytes % (auto) 7.3 % (0.0-12.0); Neutrophils # (auto) 6.7 uL; Neutrophils % (auto) 78.5 % (37.0-80.0); Platelet Count (auto) 269 10^3/uL (140-450); Red Blood Cells 4.57 10^6/uL (4.5-5.90); Red Cell Distribution Width 14.6 % (11.8-14.3); White Blood Cell 8.6 10^3/uL (4.4-10.8)
[2017-08-04] MEDS: HYDROcodone-ACET 5/325MG TAB PO PRN ×2 (09:06→17:29)
[2017-08-04] MEDS: LISINOPRIL 10 MG TAB PO SCH (09:07)
[2017-08-04] MEDS ORDERED: LIDOCAINE 1% (LOCAL ANESTH.) PF 5ml SDV ID ONE (16:45)
[2017-08-04] MEDS: SODIUM CHLOR 0.9% PF (SALINE LOCK) 10ML VIAL/SYR IV SCH (21:25)
[2017-08-04] MEDS: VANCOMYCIN 1GM/250ML 250 ML IV SCH (21:25)
[2017-08-05] MEDS: PIPERACILLIN-TAZOB 3.375GM 100 ML IV SCH ×5 (00:11→23:52)
[2017-08-05] MEDS: HYDROcodone-ACET 5/325MG TAB PO PRN ×2 (00:12→17:40)
[2017-08-05 05:00] VITALS: BP 154/80
[2017-08-05] MEDS: IPRATROPIUM BROM 0.5 MG/2.5ML INH SOL NEB SCH ×4 (07:45→19:59)
[2017-08-05] MEDS: ALBUTEROL SULF 2.5 MG/0.5ML(0.5%) NEB SOLN NEB SCH ×4 (07:45→19:59)
[2017-08-05 07:51] LABS: Basophils # (auto) 0.1 uL; Basophils % (auto) 0.6 % (0.0-2.0); Eosinophils # (auto) 0.2 uL; Eosinophils % (auto) 2.2 % (0.0-7.0); Hematocrit 39.2 % (41.0-53.0); Hemoglobin 13.4 g/dL (13.5-17.5); Lymphocytes % (auto) 11.4 % (10.0-50.0); Mean Corpuscular Hemoglobin 29.8 pg (28.0-32.0); Mean Corpuscular Hgb Conc. 34.2 g/dL (32.0-36.0); Mean Corpuscular Volume 87.1 fL (80.0-100.0); Monocytes # (auto) 0.6 uL; Monocytes % (auto) 7.2 % (0.0-12.0); Neutrophils # (auto) 6.9 uL; Neutrophils % (auto) 78.6 % (37.0-80.0); Platelet Count (auto) 277 10^3/uL (140-450); Red Cell Distribution Width 14.7 % (11.8-14.3); White Blood Cell 8.7 10^3/uL (4.4-10.8)
[2017-08-05 08:00] VITALS: BP 141/83
[2017-08-05 08:03] VITALS: BP 141/83
[2017-08-05 08:07] LABS: BUN/Creatinine Ratio 16.8; Calcium 9.4 mg/dL (8.5-10.1); Potassium 4.4 mmol/L (3.5-5.1)
[2017-08-05] MEDS: LISINOPRIL 10 MG TAB PO SCH (11:06)
[2017-08-05 11:47] VITALS: BP 177/89
[2017-08-05] MEDS: SODIUM CHLOR 0.9% PF (SALINE LOCK) 10ML VIAL/SYR IV SCH ×2 (12:57→21:25)
[2017-08-05] MEDS ORDERED: VANCOMYCIN 1GM/250ML 250 ML IV SCH ×2 (13:00→15:00)
[2017-08-05 16:15] VITALS: BP 162/71
[2017-08-05] MEDS ORDERED: KETOROLAC TROMETH 30 MG/ML 1ML VIAL IV ONE (20:30)
[2017-08-05 22:00] VITALS: BP 157/72
[2017-08-06 02:42] VITALS: BP 157/72
[2017-08-06 05:00] VITALS: BP 152/86
[2017-08-06] MEDS: PIPERACILLIN-TAZOB 3.375GM 100 ML IV SCH ×3 (06:01→18:21)
[2017-08-06] MEDS ORDERED: SOD CHL 0.45% 1,000 ML IV ONE (07:00)
[2017-08-06] MEDS: ALBUTEROL SULF 2.5 MG/0.5ML(0.5%) NEB SOLN NEB SCH ×3 (07:34→19:16)
[2017-08-06] MEDS: IPRATROPIUM BROM 0.5 MG/2.5ML INH SOL NEB SCH ×3 (07:34→19:16)
[2017-08-06 07:51] LABS: Basophils # (auto) 0 uL; Basophils % (auto) 0.6 % (0.0-2.0); Eosinophils # (auto) 0.3 uL; Eosinophils % (auto) 3.7 % (0.0-7.0); Hematocrit 37.6 % (41.0-53.0); Hemoglobin 12.6 g/dL (13.5-17.5); Lymphocytes % (auto) 14.7 % (10.0-50.0); Mean Corpuscular Hgb Conc. 33.4 g/dL (32.0-36.0); Mean Corpuscular Volume 86.9 fL (80.0-100.0); Monocytes # (auto) 0.6 uL; Monocytes % (auto) 8.9 % (0.0-12.0); Neutrophils # (auto) 5.1 uL; Neutrophils % (auto) 72.1 % (37.0-80.0); Platelet Count (auto) 268 10^3/uL (140-450); Red Blood Cells 4.32 10^6/uL (4.5-5.90)
[2017-08-06 08:00] VITALS: BP 182/75
[2017-08-06 08:06] LABS: Albumin 3.3 g/dL (3.4-5.0); BUN/Creatinine Ratio 17.3; Bilirubin, Total 0.3 mg/dL (0.2-1.0); Calcium 8.9 mg/dL (8.5-10.1); Potassium 4.5 mmol/L (3.5-5.1); Total Protein 7.8 g/dL (6.4-8.2)
[2017-08-06] MEDS: VANCOMYCIN 1GM/250ML 250 ML IV SCH (09:25)
[2017-08-06] MEDS: KETOROLAC TROMETH 30 MG/ML 1ML VIAL IV PRN ×2 (09:26→16:40)
[2017-08-06] MEDS: amLODIPine BESYLATE 5 MG TAB PO SCH (09:46)
[2017-08-06] MEDS: SODIUM CHLOR 0.9% PF (SALINE LOCK) 10ML VIAL/SYR IV SCH ×2 (11:59→22:31)
[2017-08-06 12:00] VITALS: BP 153/79
[2017-08-06 15:00] VITALS: BP 182/82
[2017-08-06] MEDS ORDERED: ENALAPRILAT 1.25 MG/ML-1ML VIAL IV ONE (19:15)
[2017-08-06] MEDS: HYDROcodone-ACET 5/325MG TAB PO PRN (20:19)
[2017-08-06 22:17] VITALS: BP 162/86
[2017-08-07] MEDS: PIPERACILLIN-TAZOB 3.375GM 100 ML IV SCH ×2 (00:36→06:07)
[2017-08-07] MEDS: VANCOMYCIN 1GM/250ML 250 ML IV SCH (02:07)
[2017-08-07] MEDS: ALBUTEROL SULF 2.5 MG/0.5ML(0.5%) NEB SOLN NEB SCH ×4 (04:05→19:46)
[2017-08-07] MEDS: IPRATROPIUM BROM 0.5 MG/2.5ML INH SOL NEB SCH ×4 (04:05→19:46)
[2017-08-07 05:15] VITALS: BP 157/69
[2017-08-07 08:00] VITALS: BP 171/70
[2017-08-07 08:23] LABS: Basophils # (auto) 0.1 uL; Basophils % (auto) 0.8 % (0.0-2.0); Eosinophils # (auto) 0.4 uL; Eosinophils % (auto) 4.7 % (0.0-7.0); Hemoglobin 13.8 g/dL (13.5-17.5); Lymphocytes # (auto) 1.2 uL; Lymphocytes % (auto) 14.8 % (10.0-50.0); Mean Corpuscular Hemoglobin 29.4 pg (28.0-32.0); Mean Corpuscular Hgb Conc. 33.6 g/dL (32.0-36.0); Mean Corpuscular Volume 87.6 fL (80.0-100.0); Monocytes # (auto) 0.5 uL; Monocytes % (auto) 6.3 % (0.0-12.0); Neutrophils # (auto) 5.8 uL; Neutrophils % (auto) 73.4 % (37.0-80.0); Nucleated Red Blood Cells % 0.1 %; Platelet Count (auto) 267 10^3/uL (140-450); Red Blood Cells 4.68 10^6/uL (4.5-5.90); Red Cell Distribution Width 14.5 % (11.8-14.3); White Blood Cell 7.9 10^3/uL (4.4-10.8)
[2017-08-07 08:38] LABS: BUN/Creatinine Ratio 17.9; Calcium 9.4 mg/dL (8.5-10.1); Potassium 4.3 mmol/L (3.5-5.1)
[2017-08-07] MEDS: amLODIPine BESYLATE 5 MG TAB PO SCH (08:44)
[2017-08-07] MEDS: KETOROLAC TROMETH 30 MG/ML 1ML VIAL IV PRN (10:53)
[2017-08-07] MEDS: LEVOFLOXACIN 750MG 150 ML IV SCH (10:56)
[2017-08-07] MEDS: SODIUM CHLOR 0.9% PF (SALINE LOCK) 10ML VIAL/SYR IV SCH ×2 (11:13→22:55)
[2017-08-07 12:00] VITALS: BP 185/86
[2017-08-07 15:00] VITALS: BP 135/71
[2017-08-07 21:00] VITALS: BP 144/98
[2017-08-08] MEDS: KETOROLAC TROMETH 30 MG/ML 1ML VIAL IV PRN ×5 (00:14→20:47)
[2017-08-08 06:22] VITALS: BP 152/81
[2017-08-08] MEDS: ALBUTEROL SULF 2.5 MG/0.5ML(0.5%) NEB SOLN NEB SCH ×3 (06:57→20:03)
[2017-08-08] MEDS: IPRATROPIUM BROM 0.5 MG/2.5ML INH SOL NEB SCH ×3 (06:57→20:03)
[2017-08-08 08:05] LABS: Basophils # (auto) 0.1 uL; Basophils % (auto) 0.7 % (0.0-2.0); Eosinophils # (auto) 0.4 uL; Eosinophils % (auto) 4.8 % (0.0-7.0); Hematocrit 37.5 % (41.0-53.0); Hemoglobin 12.7 g/dL (13.5-17.5); Mean Corpuscular Hemoglobin 29.4 pg (28.0-32.0); Mean Corpuscular Hgb Conc. 33.8 g/dL (32.0-36.0); Monocytes # (auto) 0.5 uL; Neutrophils # (auto) 5.5 uL; Neutrophils % (auto) 74.5 % (37.0-80.0); Platelet Count (auto) 236 10^3/uL (140-450); Red Blood Cells 4.31 10^6/uL (4.5-5.90); Red Cell Distribution Width 14.7 % (11.8-14.3); White Blood Cell 7.3 10^3/uL (4.4-10.8)
[2017-08-08 08:13] VITALS: BP 164/76
[2017-08-08 08:13] LABS: BUN/Creatinine Ratio 16.2; Calcium 9.2 mg/dL (8.5-10.1)
[2017-08-08] MEDS: LEVOFLOXACIN 750MG 150 ML IV SCH (09:49)
[2017-08-08] MEDS: amLODIPine BESYLATE 5 MG TAB PO SCH (09:50)
[2017-08-08] MEDS: SODIUM CHLOR 0.9% PF (SALINE LOCK) 10ML VIAL/SYR IV SCH (09:50)
[2017-08-08] MEDS: BOOST PLUS 8 ounce PO SCH ×2 (12:00→18:00)
[2017-08-08 13:00] VITALS: BP 147/83
[2017-08-08 16:21] VITALS: BP 141/86
[2017-08-08 19:26] LABS: INR 1.03 (0.9-1.15)
[2017-08-08 20:53] VITALS: BP 141/86
[2017-08-08 22:00] VITALS: BP 137/59
[2017-08-08] MEDS: ASCORBIC ACID 500 MG TAB PO SCH (22:00)
[2017-08-09] MEDS: ALBUTEROL SULF 2.5 MG/0.5ML(0.5%) NEB SOLN NEB SCH ×4 (00:18→18:46)
[2017-08-09] MEDS: IPRATROPIUM BROM 0.5 MG/2.5ML INH SOL NEB SCH ×4 (00:18→18:46)
[2017-08-09] MEDS: SODIUM CHLOR 0.9% PF (SALINE LOCK) 10ML VIAL/SYR IV SCH ×3 (02:59→21:26)
[2017-08-09] MEDS: KETOROLAC TROMETH 30 MG/ML 1ML VIAL IV PRN ×3 (04:39→21:25)
[2017-08-09 06:16] VITALS: BP 151/92
[2017-08-09] MEDS ORDERED: ceFAZolin 1GM/50ML 50 ML IV ONE (06:54)
[2017-08-09] MEDS ORDERED: fentaNYL CITRATE 100 MCG/2 ML VL ONE ×2 (07:24)
[2017-08-09] MEDS ORDERED: MIDAZOLAM HCL 1MG/1ML-2 ML VIAL ONE ×3 (07:24)
[2017-08-09] MEDS ORDERED: MEPERIDINE HCL (50 MG/ML) 1 ML VIAL ONE (07:24)
[2017-08-09] MEDS ORDERED: TETRACAINE 1% INJ 2 ML VIAL IJ ONE (07:31)
[2017-08-09] MEDS: BOOST PLUS 8 ounce PO SCH ×3 (08:00→18:00)
[2017-08-09] MEDS ORDERED: DEXAMETHASONE SOD PHOS 10MG/1ML VIAL INJ ONE (08:12)
[2017-08-09] MEDS ORDERED: PROPOFOL 10 MG/ML 20 ML IV ONE (08:12)
[2017-08-09] MEDS ORDERED: ePHEDrine SULFATE 50 MG/ML AMP IV PRN (08:30)
[2017-08-09] MEDS ORDERED: MORPHINE SULFATE 8mg/ml INJ SDV IV PRN (08:30)
[2017-08-09] MEDS ORDERED: LABETALOL HCL 5 MG/ML 4ML SYRINGE IV PRN (08:30)
[2017-08-09] MEDS ORDERED: HYDROmorphone HCL 2 MG/ML VL IV PRN (08:30)
[2017-08-09] MEDS ORDERED: ONDANSETRON HCL 4 MG/2 ML VIAL IV ONE (08:30)
[2017-08-09] MEDS ORDERED: MIDAZOLAM HCL 1MG/1ML-2 ML VIAL IV PRN (08:30)
[2017-08-09] MEDS ORDERED: KETOROLAC TROMETH 30 MG/ML 1ML VIAL IV ONE (08:30)
[2017-08-09] MEDS ORDERED: hydrALAZINE HCL 20 MG/ML VL IV PRN (08:30)
[2017-08-09] MEDS ORDERED: POVIDONE IODINE 10 % TOPICAL OINT 30GM TOP ONE (08:55)
[2017-08-09] MEDS ORDERED: fentaNYL CITRATE 100 MCG/2 ML VL IV ONE (09:00)
[2017-08-09 09:50] VITALS: BP 176/76
[2017-08-09] MEDS ORDERED: MORPHINE SULFATE 8mg/ml INJ SDV IV ONE (10:00)
[2017-08-09] MEDS: ASCORBIC ACID 500 MG TAB PO SCH ×2 (10:23→21:25)
[2017-08-09] MEDS: MULTIPLE VITAMINS W/ MINERALS TAB PO SCH (10:23)
[2017-08-09] MEDS: LEVOFLOXACIN 750MG 150 ML IV SCH (10:23)
[2017-08-09] MEDS: amLODIPine BESYLATE 5 MG TAB PO SCH (10:30)
[2017-08-09] MEDS: ENALAPRILAT 1.25 MG/ML-1ML VIAL IV PRN ×3 (11:55→21:26)
[2017-08-09 12:34] LABS: Basophils # (auto) 0 uL; Basophils % (auto) 0.4 % (0.0-2.0); Eosinophils # (auto) 0.1 uL; Eosinophils % (auto) 0.9 % (0.0-7.0); Hemoglobin 12.7 g/dL (13.5-17.5); Lymphocytes # (auto) 0.4 uL; Lymphocytes % (auto) 3.9 % (10.0-50.0); Mean Corpuscular Hemoglobin 28.8 pg (28.0-32.0); Mean Corpuscular Hgb Conc. 32.5 g/dL (32.0-36.0); Mean Corpuscular Volume 88.5 fL (80.0-100.0); Monocytes # (auto) 0.1 uL; Neutrophils # (auto) 9.6 uL; Neutrophils % (auto) 93.8 % (37.0-80.0); Platelet Count (auto) 209 10^3/uL (140-450); Red Cell Distribution Width 14.8 % (11.8-14.3); White Blood Cell 10.3 10^3/uL (4.4-10.8)
[2017-08-09 12:56] VITALS: BP 166/87
[2017-08-09 13:02] LABS: BUN/Creatinine Ratio 18.1; Calcium 9.3 mg/dL (8.5-10.1); Potassium 4.3 mmol/L (3.5-5.1)
[2017-08-09 16:20] VITALS: BP 146/75
[2017-08-09] MEDS: NICOTINE 14 MG/24HR TOPICAL PATCH TD SCH ×2 (17:00→17:45)
[2017-08-09] MEDS: HYDROcodone-ACET 5/325MG TAB PO PRN (22:04)
[2017-08-09 22:55] VITALS: BP 142/69
[2017-08-10] MEDS: IPRATROPIUM BROM 0.5 MG/2.5ML INH SOL NEB SCH ×3 (00:40→12:03)
[2017-08-10] MEDS: ALBUTEROL SULF 2.5 MG/0.5ML(0.5%) NEB SOLN NEB SCH ×3 (00:40→12:03)
[2017-08-10 05:09] VITALS: BP 151/72
[2017-08-10] MEDS: KETOROLAC TROMETH 30 MG/ML 1ML VIAL IV PRN (05:41)
[2017-08-10] MEDS: HYDROcodone-ACET 5/325MG TAB PO PRN (05:47)
[2017-08-10 07:00] LABS: Basophils # (auto) 0 uL; Basophils % (auto) 0.1 % (0.0-2.0); Eosinophils # (auto) 0 uL; Eosinophils % (auto) 0.2 % (0.0-7.0); Hematocrit 30.7 % (41.0-53.0); Hemoglobin 10.3 g/dL (13.5-17.5); Lymphocytes # (auto) 0.8 uL; Lymphocytes % (auto) 5.7 % (10.0-50.0); Mean Corpuscular Hgb Conc. 33.4 g/dL (32.0-36.0); Mean Corpuscular Volume 86.8 fL (80.0-100.0); Monocytes # (auto) 0.8 uL; Monocytes % (auto) 5.7 % (0.0-12.0); Neutrophils # (auto) 11.8 uL; Neutrophils % (auto) 88.3 % (37.0-80.0); Platelet Count (auto) 229 10^3/uL (140-450); Red Blood Cells 3.54 10^6/uL (4.5-5.90); Red Cell Distribution Width 14.4 % (11.8-14.3); White Blood Cell 13.4 10^3/uL (4.4-10.8)
[2017-08-10 07:13] LABS: BUN/Creatinine Ratio 20.5; Calcium 8.7 mg/dL (8.5-10.1); Potassium 4.3 mmol/L (3.5-5.1)
[2017-08-10] MEDS: BOOST PLUS 8 ounce PO SCH ×2 (08:00→12:00)
[2017-08-10 08:21] VITALS: BP 161/82
[2017-08-10] MEDS: amLODIPine BESYLATE 5 MG TAB PO SCH (10:10)
[2017-08-10] MEDS: SODIUM CHLOR 0.9% PF (SALINE LOCK) 10ML VIAL/SYR IV SCH (10:10)
[2017-08-10] MEDS: ASCORBIC ACID 500 MG TAB PO SCH (10:11)
[2017-08-10] MEDS: NICOTINE 14 MG/24HR TOPICAL PATCH TD SCH (10:11)
[2017-08-10] MEDS: LEVOFLOXACIN 750MG 150 ML IV SCH (10:11)
[2017-08-10] MEDS: MULTIPLE VITAMINS W/ MINERALS TAB PO SCH (10:11)
[2017-08-10 12:49] VITALS: BP 159/77
[2017-08-10 17:00] VITALS: BP 163/91
== END 2017-08-10 17:30 | disposition home health service (06) | DRG 305 ==
LOC: ER 13:00 → OVERFLOW 13:01 → WEST WING 20:54
PROVIDERS: ADMIT Internal Medicine; ATTEND Internal Medicine
PROC: 02HV33Z Insertion of Infusion Device into Superior Vena Cava, Percutaneous Approach (ICD-10-PCS; 2017-08-04)
PROC: 0Y6D0Z3 Detachment at Left Upper Leg, Low, Open Approach (ICD-10-PCS; principal; 2017-08-09 07:35)
DX: T87.44 Infection of amputation stump, left lower extremity (principal); A41.9 Sepsis, unspecified organism; I11.0 Hypertensive heart disease with heart failure; I50.9 Heart failure, unspecified; M86.8X8 Other osteomyelitis, other site; N18.3 Chronic kidney disease, stage 3 (moderate); I13.0 Hypertensive heart and chronic kidney disease with heart failure and stage 1 through stage 4 chronic kidney disease, or unspecified chronic kidney disease; Y83.5 Amputation of limb(s) as the cause of abnormal reaction of the patient, or of later complication, without mention of misadventure at the time of the procedure; J44.9 Chronic obstructive pulmonary disease, unspecified; I73.9 Peripheral vascular disease, unspecified; F15.10 Other stimulant abuse, uncomplicated; F17.210 Nicotine dependence, cigarettes, uncomplicated; T87.81 Dehiscence of amputation stump; L03.116 Cellulitis of left lower limb; Z89.512 Acquired absence of left leg below knee; Z91.19 Patient's noncompliance with other medical treatment and regimen; Z71.3 Dietary counseling and surveillance; Y92.89 Other specified places as the place of occurrence of the external cause
CPT/HCPCS: 36415; 36569; 36600; 71045; 73590; 73701; 80048; 80053; 80202; 80307; 81001; 82805; 82962; 83036; 83605; 83735; 84484; 85025; 85610; 85730; 86850; 86900; 86901; 87040; 87077; 87081; 87186; 87205; 93926; 94640; 94761; 96361; 96365; 96367; J0690; J1100; J1885; J1956; J2250; J2543; J2704; J3490

== ENCOUNTER 2017-09-30 11:04 | Emergency (ER) | payer MEDICAID ==
[~2017-09-30] VITALS: Ht 177.8 cm; Wt 63.5 kg
[2017-09-30 11:17] VITALS: BP 149/80
== END 2017-09-30 12:14 | disposition home or self-care (01) ==
LOC: ER 11:04
DX: S88.012D Complete traumatic amputation at knee level, left lower leg, subsequent encounter (principal); I11.0 Hypertensive heart disease with heart failure; I50.9 Heart failure, unspecified; J44.9 Chronic obstructive pulmonary disease, unspecified; Z48.02 Encounter for removal of sutures; Z89.512 Acquired absence of left leg below knee; X58.XXXD Exposure to other specified factors, subsequent encounter

== ENCOUNTER 2017-10-01 12:21 | Emergency (ER) | payer MEDICAID ==
[~2017-10-01] VITALS: Ht 177.8 cm; Wt 63.5 kg
[2017-10-01 12:30] VITALS: BP 167/56
== END 2017-10-01 14:26 | disposition home or self-care (01) ==
LOC: ER 12:21
DX: I11.0 Hypertensive heart disease with heart failure (principal); F17.210 Nicotine dependence, cigarettes, uncomplicated; I50.9 Heart failure, unspecified; J44.9 Chronic obstructive pulmonary disease, unspecified; F12.10 Cannabis abuse, uncomplicated; F14.10 Cocaine abuse, uncomplicated; Z48.02 Encounter for removal of sutures